=== PATIENT | male | born 1955 | race Caucasian/White ===

== ENCOUNTER → 2023-09-16 06:21 | Day surgery (SDC) | payer MEDICARE, OTHER, SELFPAY ==
[2023-09-01 08:18] VITALS: BMI 23.7
[2023-09-16] VITALS (8 sets, daily range): BP systolic 121–150; BP diastolic 51–80; BMI 23.7
[2023-09-16] MEDS: CELEBREX 200 MG PO (10:44)
[2023-09-16] MEDS: TYLENOL 1000 MG PO (10:44)
[2023-09-16] MEDS: NORMOSOL-R 1000 IV (10:45)
== END ==
LOC: SDS 06:21
PROVIDERS: ATTENDING PHYSICIAN Orthopaedic Surgery Hand Surgery; FAMILY PHYSICIAN Internal Medicine
DX: M75.101 Unspecified rotator cuff tear or rupture of right shoulder, not specified as traumatic (principal); M75.41 Impingement syndrome of right shoulder; M25.711 Osteophyte, right shoulder
CPT/HCPCS: 29827; 29826; C1713

== ENCOUNTER → 2024-06-03 09:28 | Outpatient (REF) | payer MEDICARE, OTHER, SELFPAY ==
[2024-06-03 11:05] LABS: % Basophils 0.7 % (0-2); % Eosinophils 3.3 % (0-6); % Lymphocytes 44.3 % (20.5-51.1); % Monocytes 7.3 % (1.7-9.3); % Neutrophils 44.4 % (42.2-75.2); Absolute Eosinophils 0.2 10^3/uL (0-0.7); Absolute Monocytes 0.3 10^3/uL (0.1-0.6); Hematocrit 44.5 % (39.0-52.0); Hemoglobin 14.5 g/dL (13.0-18.0); Mean Corp Hgb Conc. 32.6 g/dL (33.0-37.0); Mean Corpuscular Hgb 29.4 pg (27.0-31.0); Mean Corpuscular Volume 90.3 fL (80.0-94.0); Mean Platelet Volume 9.2 fL (7.4-10.4); Nucleated Red Blood Cells % 0 % (-); Platelet Count 273 10^3/uL (130-400); Red Blood Cell Count 4.93 10^6/uL (4.70-6.10); Red Cell Dist. Width 13.6 % (11.5-14.5); White Blood Cell Count 4.5 10^3/uL (4.8-10.8)
[2024-06-03 12:07] LABS: Blood Urea Nitrogen 13 mg/dl (9-20); Calcium 9.5 mg/dl (8.4-10.2); Carbon Dioxide 33 mmol/L (22-30); Chloride 96 mmol/L (98-107); Glucose 88 mg/dl (70-99); Potassium 4.7 mmol/L (3.5-5.1); Sodium 136 mmol/L (135-145); eGFR > 60.00
== END ==
LOC: REG 09:28
PROVIDERS: ATTENDING PHYSICIAN Orthopaedic Surgery Hand Surgery; FAMILY PHYSICIAN Internal Medicine
DX: Z01.818 Encounter for other preprocedural examination (principal)
CPT/HCPCS: 36415; 80048; 85025; 93005

== ENCOUNTER → 2025-01-09 08:27 | Outpatient (REF) | payer MEDICARE, OTHER, SELFPAY | LOC: EMG 08:27 | PROVIDERS: ATTENDING PHYSICIAN Orthopaedic Surgery Hand Surgery; FAMILY PHYSICIAN Internal Medicine | DX: M79.642 Pain in left hand (principal); M79.641 Pain in right hand; R20.2 Paresthesia of skin | CPT/HCPCS: 95886; 95911 ==